=== PATIENT | female | born 1930 ===

== ENCOUNTER 2016-12-19 00:48 | Emergency (ER) | payer OTHER ==
[2016-12-19 01:13] VITALS: BP 119/62; PULSE 63; RESP 18; TEMP 97.6; O2SAT 98
[2016-12-19 01:18] VITALS: RESP 18; O2SAT 98
[2016-12-19 01:27] LABS: AUTOMATED NEUTROPHIL # 3.6 TH/MM3 (1.8-7.7); BASOPHIL # 0.1 TH/MM3 (0-0.2); BASOPHIL % 1.4 % (0.0-2.0); EOSINOPHIL # 0.7 TH/MM3 (0-0.4); EOSINOPHIL % 9.5 % (0.0-4.0); HEMATOCRIT 31.7 % (35.0-46.0); HEMO FLAGS DIFF FINAL; LYMPH % 27.8 % (9.0-44.0); LYMPHOCYTE # 1.9 TH/MM3 (1.0-4.8); MEAN CELL VOLUME 92.8 FL (80.0-100.0); MEAN CORPUSCULAR HEMOGLOBIN 31.3 PG (27.0-34.0); MEAN CORPUSCULAR HGB CONC 33.7 % (32.0-36.0); MONO % 9.3 % (0.0-8.0); PLATELET COUNT 181 TH/MM3 (150-450); RED BLOOD COUNT 3.41 MIL/MM3 (4.00-5.30); RED CELL DISTRIBUTION WIDTH 13.1 % (11.6-17.2); WHITE BLOOD COUNT 6.9 TH/MM3 (4.0-11.0)
--- NOTE | 2016-12-19 01:43 | PD ---
HPI Chief Complaint: Syncope/Near-Syncope Time Seen by Provider: 01:38 Travel History International Travel<30 days: No Contact w/Intl Traveler<30days: No Traveled to known affect area: No History of Present Illness HPI 86-year-old female arrives by EMS. She experienced a fallwhile walking across her house with her walker. She fell to the ground. Evidently she had one fall yesterday as well. She reports decreased water intake. She reports increased generalized weakness for several days. EMS reports the patient was orthostatic on scene. The heart rate was 70 with a blood pressure of 90/50 while the patient was supine. The patient sat upright and the heart rate increased to 90 and the blood pressure decreased to 80/50. In the ER the patient states she has urinary frequency. She also states he feels bad because she lives with her daughter. PFS Social History Tobacco Use: No (quite years ago) Allergies-Medications (Allergen,Severity, Reaction): Coded Allergies: Morphine (Verified Allergy, Severe, 12/19/16) Reported Meds & Prescriptions Reported Meds & Active Scripts Active Bactrim DS (Sulfamethoxazole-Trimethoprim) 800-160 Mg Tab 1 Tab PO BID Review of Systems Except as stated in HPI: all other systems reviewed are Neg Physical Exam Narrative GENERAL: 86 yo F, WNWD, speaking full sentences SKIN: Warm and dry. HEAD: Atraumatic. Normocephalic. EYES: Pupils equal and round. No scleral icterus. No injection or drainage. ENT: No nasal bleeding or discharge. Mucous membranes pink and moist. NECK: Trachea midline. No JVD. CARDIOVASCULAR: Regular rate and rhythm. RESPIRATORY: No accessory muscle use. Clear to auscultation. Breath sounds equal bilaterally. GASTROINTESTINAL: Abdomen soft, non-tender, nondistended. Hepatic and splenic margins not palpable. MUSCULOSKELETAL: Extremities without clubbing, cyanosis, or edema. No obvious deformities. NEUROLOGICAL: Awake and alert. No obvious cranial nerve deficits. Motor grossly within normal limits. Five out of 5 muscle strength in the arms and legs. Normal speech. PSYCHIATRIC: Appropriate mood and affect; insight and judgment normal. Data Data Last Documented VS Vital Signs Date Time Temp Pulse Resp B/P Pulse Ox O2 Delivery O2 Flow Rate FiO2 12/19/16 01:18 18 98 12/19/16 01:18 63 12/19/16 01:13 97.6 119/62 VS reviewed Orders Electrocardiogram (12/19/16 00:58) Basic Metabolic Panel (Bmp) (12/19/16 00:58) Complete Blood Count With Diff (12/19/16 00:58) Urinalysis - C+S If Indicated (12/19/16 00:58) Blood Glucose (12/19/16 00:58) Ecg Monitoring (12/19/16 00:58) Iv Access Insert/Monitor (12/19/16 00:58) Oximetry (12/19/16 00:58) Urine Culture (12/19/16 01:05) Ceftriaxone Inj (Rocephin Inj) (12/19/16 02:30) Labs Laboratory Tests Test 12/19/16 01:05 White Blood Count 6.9 TH/MM3 Red Blood Count 3.41 MIL/MM3 Hemoglobin 10.7 GM/DL Hematocrit 31.7 % Mean Corpuscular Volume 92.8 FL Mean Corpuscular Hemoglobin 31.3 PG Mean Corpuscular Hemoglobin 33.7 % Concent Red Cell Distribution Width 13.1 % Platelet Count 181 TH/MM3 Mean Platelet Volume 8.1 FL Neutrophils (%) (Auto) 52.0 % Lymphocytes (%) (Auto) 27.8 % Monocytes (%) (Auto) 9.3 % Eosinophils (%) (Auto) 9.5 % Basophils (%) (Auto) 1.4 % Neutrophils # (Auto) 3.6 TH/MM3 Lymphocytes # (Auto) 1.9 TH/MM3 Monocytes # (Auto) 0.6 TH/MM3 Eosinophils # (Auto) 0.7 TH/MM3 Basophils # (Auto) 0.1 TH/MM3 CBC Comment DIFF FINAL Differential Comment Urine Color YELLOW Urine Turbidity HAZY Urine pH 6.5 Urine Specific [place] 1.014 Urine Protein TRACE mg/dL Urine Glucose (UA) NEG mg/dL Urine Ketones NEG mg/dL Urine Occult Blood SMALL Urine Nitrite NEG Urine Bilirubin NEG Urine Urobilinogen 2.0 MG/DL Urine Leukocyte Esterase LARGE Urine RBC 5 /hpf Urine WBC /hpf Urine WBC Clumps MANY Urine Bacteria MANY /hpf Urine Hyaline Casts 5 /lpf Urine Mucus FEW /lpf Microscopic Urinalysis Comment CATH-CULTURE IND Sodium Level 138 MEQ/L Potassium Level 3.6 MEQ/L Chloride Level 105 MEQ/L Carbon Dioxide Level 26.9 MEQ/L Anion Gap 6 MEQ/L Blood Urea Nitrogen 10 MG/DL Creatinine 1.21 MG/DL Estimat Glomerular Filtration 42 ML/MIN Rate Random Glucose 88 MG/DL Calcium Level 8.4 MG/DL MDM Medical Decision Making Medical Screen Exam Complete: Yes Emergency Medical Condition: Yes Medical Record Reviewed: Yes Differential Diagnosis Electrolyte imbalance, UTI, arrhythmia, anemia Narrative Course CBC & BMP Diagram 12/19/16 01:05 Hgb stable sine 05/13 Mild renal insufficiency stable since 05/13 UA shows a UTI Rocephin 1g. Bactrim DS script. F/u with pmd BP increased to about 165/85 in ER at 310AM. Diagnosis Primary Impression: Fall Qualified Code: W19.XXXA - Fall, initial encounter Additional Impression: Cystitis Referrals: Primary Care Physician 2 days Additional Instructions: You have a choice when it comes to health care, and we are glad that you chose [facility]. Hopefully, we have met your expectations on today's visit. You are welcome to return to [facility] at any time, as we are committed to meeting the health care needs of our community. Med/Other Pt SpecificInfo: Prescription(s) given Scripts Sulfamethoxazole-Trimethoprim (Bactrim DS)800-160 Mg Tab1 Tab PO BID #[id number] TAB Ref 0 Prov:Rob Gooden MD 12/19/16 Disposition: DISCHARGE HOME Condition: Stable Rob Gooden MD Dec 19, 2016 01:43
[2016-12-19 02:11] LABS: BACTERIA, URINE MANY /hpf; BLOOD, URINE SMALL (NEG); GLUCOSE,URINE NEG (NEG); HYALINE CAST, URINE 5 /lpf (RARE); KETONE, URINE NEG (NEG); MUCUS URINE FEW /lpf (OCC); NITRITE,URINE NEG (NEG); PH, URINE 6.5 (5.0-8.5); URINE COLOR YELLOW (YELLW/STRAW)
[2016-12-19 02:17] LABS: COMMENT (UR) CATH-CULTURE IND; CULTURE IF INDICATED CATH CULTURE IND
[2016-12-19] MEDS ORDERED: BACT800T5 PO (02:22)
[2016-12-19] MEDS ORDERED: cefTRIAXone INJ 1,000 MG in SODIUM CHLORIDE 0.9% INJ 100 ML IV ONE (02:30)
[2016-12-19 03:02] LABS: BICARBONATE 26.9 MEQ/L (21.0-32.0); POTASSIUM 3.6 MEQ/L (3.5-5.1)
--- NOTE | 2016-12-20 14:22 | EKG ---
Date Performed: 12/19/2016 Time Performed: 01:01:43 PTAGE: 86 years EKG: Sinus rhythm BORDERLINE LEFT AXIS DEVIATION NONSPECIFIC T-WAVE ABNORMALITY ABNORMAL ECG NO PREVIOUS TRACING DOCTOR: Sandor Rothman Interpretating Date/Time 12/20/2016 14:21:32
== END 2016-12-19 03:33 | disposition home or self-care (01) ==
LOC: NEPC 00:48
DX: N30.90 Cystitis, unspecified without hematuria (principal); B96.89 Other specified bacterial agents as the cause of diseases classified elsewhere
CPT/HCPCS: 80048; 81001; 85025; 87077; 87086; 87186; 93005; 96374; 99284; J0696